=== PATIENT | female | born 1960 | race Caucasian/White ===

== ENCOUNTER → 2021-02-01 10:08 | Outpatient (CLI) | payer OTHER, SELFPAY ==
[2021-02-01 10:28] LABS: Hematocrit 44.1 % (36-46); Mean Corpuscular HGB Conc 34.1 % (30-36); Mean Corpuscular Hemoglobin 31.2 PG (26-34); Mean Corpuscular Volume 91.4 fL (80-100); Platelet Count 248 X10^3/uL (150-400); Red Blood Cell Count 4.83 X10^6/uL (4.0-5.2); Red Cell Distribution Width 13.5 % (11.6-14.8); White Blood Cell Count 5.9 X10^3/uL (4.5-11.0)
[2021-02-01 10:54] LABS: Alanine Aminotransferase 10 IU/L (<35); Albumin 4.4 g/dL (3.5-5.0); Albumin Globulin Ratio 1.8 (1.0-2.8); Alkaline Phosphatase 71 U/L (38-126); Aspartate Aminotransferase 18 IU/L (14-36); BUN Creatinine Ratio 19.7 (6-22); Bilirubin Total 0.8 mg/dL (0.2-1.3); Blood Urea Nitrogen 14 mg/dL (7-17); Calcium 9.2 mg/dL (8.4-10.2); Carbon Dioxide 28 mmol/L (22-32); Chloride 106 mmol/L (98-107); Cholesterol 218 mg/dL (140-199); Estimated Glomerular Filt Rate > 60.0 mL/min (>60); Globulin 2.4 g/dL (1.7-4.1); Glucose 94 mg/dL (80-110); HDL Cholesterol 64 mg/dL (40-60); HEMOLYSIS 17 (0-50); LDL Cholesterol Calculated 135 mg/dL (<100); Sodium 139 mmol/L (137-145); Total Protein 6.8 g/dL (6.3-8.2); Triglycerides 97 mg/dL (35-150)
[2021-02-01 11:24] LABS: TSH w/ Reflex to FT4 2.22 uIU/mL (0.47-4.68)
== END ==
PROVIDERS: Family Provider Obstetrics & Gynecology; PCP Registered Nurse Diabetes Educator; Referring Provider Registered Nurse Diabetes Educator; Visit Provider Registered Nurse Diabetes Educator
DX: Z00.00 Encounter for general adult medical examination without abnormal findings (principal)
CPT/HCPCS: 36415; 80053; 80061; 84443; 85027

== ENCOUNTER → 2022-09-30 12:42 | Outpatient (CLI) | payer OTHER, SELFPAY ==
--- NOTE | 2022-09-30 12:44 | DI.RAD.S_ITS ---
PROCEDURE: XR FINGER RT MIN 2V INDICATIONS: night sweats, remote hx osteomyelitis TECHNIQUE: AP hand, 2 views of the 3rd finger(s) acquired. COMPARISON: [facility], CR, XR FINGER(S) RIGHT, 02/09/2020, 13:34. FINDINGS: Bones: No fractures or dislocations. No suspicious bony lesions. Mild polyarticular joint space narrowing with periarticular osteophyte formation. No erosive changes. Soft tissues: No suspicious soft tissue calcifications. IMPRESSION: Mild scattered arthrosis. No acute radiographic abnormality. If there is high concern for further derangement, consider MRI evaluation. Dictated by: Jose Dong [facility] Interpreted: Mikey Dan MD on 09/30/2022 at 13:26 Approved by: Mikey Dan M.D. on 10/06/2022 at 19:26
--- NOTE | 2022-09-30 12:44 | DI.RAD.S_ITS ---
PROCEDURE: XR LUMBAR SPINE MIN 4V INDICATIONS: eval LLE radiculopathy TECHNIQUE: 5 views of the lumbar spine acquired, including flexion and extension views. COMPARISON: None. FINDINGS: Bones: 5 nonrib-bearing vertebrae are present. There is normal bony alignment. No vertebral body compression fractures. No suspicious bony lesions. Severe disc height loss at the L5-S1 level. Mild L4-L5 and L5-S1 facet joint arthropathy. Oblique views demonstrate no pars defects. Soft tissues: Overlying bowel gas pattern is normal. No suspicious soft tissue calcifications. Vascular calcifications indicate atherosclerosis. IMPRESSION: 1. Severe disc degeneration at the L5-S1 level and there is mild L4-L5 and L5-S1 facet joint arthropathy If there is high concern for further derangement, consider MRI evaluation. Dictated by: Jose Dong [facility] Interpreted: Mikey Dan MD on 09/30/2022 at 13:24 Transcribed by: DAVID on 09/30/2022 at 13:26 Approved by: Mikey Dan M.D. on 09/30/2022 at 16:22
--- NOTE | 2022-09-30 12:44 | DI.RAD.S_ITS ---
PROCEDURE: XR CHEST 2V INDICATIONS: night sweats TECHNIQUE: 2 views of the chest were acquired. COMPARISON: None. FINDINGS: Surgical changes and devices: None. Lungs and pleura: Lungs are clear. No pleural effusions or pneumothorax. Mediastinum: Mediastinal contours are normal. Heart size is normal. Bones and chest wall: No suspicious bony abnormalities. Soft tissues appear unremarkable. IMPRESSION: No acute cardiopulmonary disease. Dictated by: Jose Dong [facility] Interpreted: Mikey Dan MD on 09/30/2022 at 13:27 Transcribed by: DAVID on 09/30/2022 at 13:27 Approved by: Mikey Dan M.D. on 09/30/2022 at 16:22
== END ==
PROVIDERS: Family Provider Obstetrics & Gynecology; PCP Registered Nurse Diabetes Educator; Referring Provider Registered Nurse Diabetes Educator; Visit Provider Registered Nurse Diabetes Educator
DX: M47.27 Other spondylosis with radiculopathy, lumbosacral region (principal); M51.17 Intervertebral disc disorders with radiculopathy, lumbosacral region; M47.26 Other spondylosis with radiculopathy, lumbar region; R61 Generalized hyperhidrosis; M19.041 Primary osteoarthritis, right hand; M51.9 Unspecified thoracic, thoracolumbar and lumbosacral intervertebral disc disorder; M79.644 Pain in right finger(s); Z87.39 Personal history of other diseases of the musculoskeletal system and connective tissue
CPT/HCPCS: 36415; 71046; 72110; 73140; 80053; 84443; 85025; 85651; 86140; 86480; 87040; 87389

== ENCOUNTER → 2022-09-30 13:29 | Outpatient (CLI) | payer OTHER, SELFPAY ==
[2022-09-30 14:27] LABS: Add Manual Diff / Slide Review NO; Basophils Absolute Auto 100 /uL (0-100); Basophils Percent Auto 1.1 % (0-2); Eosinophils Absolute Auto 100 /uL (0-450); Eosinophils Percent Auto 1.1 % (2-4); Hematocrit 41.7 % (36-46); Hemoglobin 14.1 g/dL (12.0-16.0); Lymphocytes Absolute Auto 1900 /uL (1100-4500); Lymphocytes Percent Auto 31.3 % (25-40); Mean Corpuscular HGB Conc 33.8 % (30-36); Mean Corpuscular Hemoglobin 30.7 PG (26-34); Mean Corpuscular Volume 90.9 fL (80-100); Monocytes Absolute Auto 300 /uL (0-900); Monocytes Percent Auto 5.6 % (3-14); Neutrophils Absolute Auto 3800 /uL (1500-7000); Neutrophils Percent Auto 60.9 % (50-75); Platelet Count 254 X10^3/uL (150-400); Red Blood Cell Count 4.59 X10^6/uL (4.0-5.2); Red Cell Distribution Width 13.6 % (11.6-14.8); White Blood Cell Count 6.2 X10^3/uL (4.5-11.0)
[2022-09-30 14:54] LABS: Alanine Aminotransferase 16 IU/L (<35); Albumin 4.2 g/dL (3.5-5.0); Albumin Globulin Ratio 1.8 (1.0-2.8); Alkaline Phosphatase 85 U/L (38-126); Aspartate Aminotransferase 18 IU/L (14-36); BUN Creatinine Ratio 16.9 (6-22); Bilirubin Total 0.5 mg/dL (0.2-1.3); Blood Urea Nitrogen 12 mg/dL (7-17); C-Reactive Protein Quant < 0.5 mg/dL (<1.0); Calcium 8.9 mg/dL (8.4-10.2); Carbon Dioxide 26 mmol/L (22-32); Chloride 105 mmol/L (98-107); Estimated Glomerular Filt Rate > 60 mL/min (>60); Globulin 2.4 g/dL (1.7-4.1); Glucose 92 mg/dL (80-110); HEMOLYSIS < 15 (0-50); Sodium 139 mmol/L (137-145); Total Protein 6.6 g/dL (6.3-8.2)
[2022-09-30 15:15] LABS: TSH w/ Reflex to FT4 1.75 uIU/mL (0.47-4.68)
[2022-09-30 16:13] LABS: Erythrocyte Sedimentation Rate 2 MM/HR (0-20)
[2022-10-02 17:24] LABS: HIV 1 & 2 Ab/Ag 4th Gen Combo NEGATIVE (NEGATIVE)
[2022-10-02 17:50] LABS: QuantiFERON Mitogen Value >10.00 IU/mL (.); QuantiFERON Nil Value 0.08 IU/mL (.); QuantiFERON TB Gold Plus Negative (Negative); QuantiFERON TB1 Ag Value 0.08 IU/mL (.); QuantiFERON TB2 Ag Value 0.06 IU/mL (.)
== END ==
PROVIDERS: Family Provider Obstetrics & Gynecology; PCP Registered Nurse Diabetes Educator; Referring Provider Registered Nurse Diabetes Educator; Visit Provider Registered Nurse Diabetes Educator
DX: R61 Generalized hyperhidrosis (principal)
CPT/HCPCS: 36415; 80053; 84443; 85025; 85651; 86140; 86480; 87040; 87389

== ENCOUNTER → 2023-02-05 13:17 | Outpatient (CLI) | payer OTHER, SELFPAY ==
--- NOTE | 2023-02-05 13:19 | DI.MG.S_ITS ---
BILATERAL DIGITAL SCREENING MAMMOGRAM 3D/2D WITH CAD: 02/05/2023 CLINICAL: Routine screening. Comparison mammograms 05/07/2016, 04/06/2015. Both breasts are heterogeneously dense, which may obscure small masses (category c / 51-75% glandular tissue). Current study was also evaluated with a Computer Aided Detection (CAD) system. There is an irregular asymmetry in the left breast anterior depth superior region seen on the mediolateral oblique view only. No other significant masses, calcifications, or other findings are seen in either breast. IMPRESSION: INCOMPLETE: NEEDS ADDITIONAL IMAGING EVALUATION The irregular asymmetry in the left breast is indeterminate. Additional views with possible ultrasound are recommended. Based on the Tyrer Cuzick model (a risk assessment model) the patient's lifetime risk is 8.1% and her 10 year risk is 3.5%. According to the ACR, ACS, and NCCN guidelines, an annual breast MRI exam along with mammogram is recommended if the patient's lifetime risk is 20% or greater. This exam was interpreted at Station ID: [id number]. NOTE: For mammograms, a report in lay terms will be sent to the patient. Approximately 15% of breast malignancies will not be visualized mammographically. In the management of a palpable breast mass, a negative mammogram must not discourage biopsy of a clinically suspicious lesion. Electronically Signed By: Jason Simms M.D. [facility] [place]/:02/05/2023 14:42:31 letter sent: Additional Imaging Needed ACR BI-RADS Category 0: Incomplete 3340F
== END ==
PROVIDERS: Family Provider Obstetrics & Gynecology; PCP Registered Nurse Diabetes Educator; Referring Provider Registered Nurse Diabetes Educator; Visit Provider Registered Nurse Diabetes Educator
DX: Z12.31 Encounter for screening mammogram for malignant neoplasm of breast (principal)
CPT/HCPCS: 77063; 77067

== ENCOUNTER → 2023-05-06 10:15 | Outpatient (CLI) | payer OTHER, SELFPAY ==
--- NOTE | 2023-05-06 10:16 | DI.US.S_ITS ---
LIMITED ULTRASOUND OF LEFT BREAST: 05/06/2023 CLINICAL: Patient returns today to evaluate focal asymmetries in the left breast. Comparison is made to exams dated: 05/06/2023 mammogram and 02/05/2023 mammogram - [facility]. Color flow and real-time ultrasound of the left breast were performed. Singh scale images of the real-time examination were reviewed. There is a 0.3 cm x 0.2 cm x 0.4 cm possible complicated cyst in the left breast at 10 o'clock anterior depth 3 cm from the nipple. There also is a 0.3 cm x 0.5 cm x 0.4 cm possible complicated cyst in the left breast at 1 o'clock posterior depth 1 cm from the nipple. IMPRESSION: PROBABLY BENIGN The 0.3 cm x 0.2 cm x 0.4 cm possible complicated cyst in the left breast at 10 o'clock anterior depth is probably benign. A follow-up ultrasound in 6 months is recommended. The 0.3 cm x 0.5 cm x 0.4 cm possible complicated cyst in the left breast at 1 o'clock posterior depth is probably benign. A follow-up ultrasound in 6 months is recommended. A follow-up ultrasound in 6 months is recommended to demonstrate stability. This exam was interpreted at Station ID: [id number]. Electronically Signed By: Mikey bardales/:05/06/2023 12:09:41 letter sent: Followup Recommended Ultrasound BI-RADS: 3 Probably benign
--- NOTE | 2023-05-06 10:16 | DI.MG.S_ITS ---
UNILATERAL LEFT DIGITAL DIAGNOSTIC MAMMOGRAM 3D/2D WITH ADDITIONAL VIEWS: 05/06/2023 CLINICAL: Additional evaluation requested from prior study. Comparison is made to exam dated: 02/05/2023 mammogram - [facility]. The left breast is heterogeneously dense, which may obscure small masses (category c / 51-75% glandular tissue). There is an asymmetry in the left breast anterior depth superior region seen on the mediolateral oblique view only. This is not seen in additional views. However, there are two tiny <5mm oval circumscribed masses better seen on tomographic views in this same region. No other significant masses or calcifications are seen in the breast. IMPRESSION: INCOMPLETE: NEEDS ADDITIONAL IMAGING EVALUATION The asymmetry in the left breast is less prominent, likely superimposition. However, there are two tiny <5mm oval circumscribed masses better seen on tomographic views in this same region. An ultrasound is recommended to further evaluate Based on the Tyrer Cuzick model (a risk assessment model) the patient's lifetime risk is 8.1% and her 10 year risk is 3.5%. According to the ACR, ACS, and NCCN guidelines, an annual breast MRI exam along with mammogram is recommended if the patient's lifetime risk is 20% or greater. This exam was interpreted at Station ID: [id number]. NOTE: For mammograms, a report in lay terms will be sent to the patient. Approximately 15% of breast malignancies will not be visualized mammographically. In the management of a palpable breast mass, a negative mammogram must not discourage biopsy of a clinically suspicious lesion. Electronically Signed By: Mikey Dan M.D. [facility]/:05/06/2023 12:05:24 ACR BI-RADS Category 0: Incomplete 3340F
== END ==
PROVIDERS: Family Provider Obstetrics & Gynecology; PCP Registered Nurse Diabetes Educator; Referring Provider Registered Nurse Diabetes Educator; Visit Provider Registered Nurse Diabetes Educator
DX: R92.8 Other abnormal and inconclusive findings on diagnostic imaging of breast (principal)
CPT/HCPCS: 76642; 77065; G0279

== ENCOUNTER → 2023-07-21 10:51 | Outpatient (CLI) | payer OTHER, SELFPAY ==
--- NOTE | 2023-07-21 10:52 | DI.RAD.S_ITS ---
PROCEDURE: XR HIP W PEL IF DONE RT 2V INDICATIONS: eval R hip and pelvic pain TECHNIQUE: 2 views of the hip were acquired. COMPARISON: None. FINDINGS: Bones: No fractures or dislocations. No suspicious bony lesions. The visualized pelvic ring appears intact. Soft tissues: No suspicious soft tissue calcifications or masses. IMPRESSION: Unremarkable pelvis and right hip radiographs Approved by: Austen Garcia M.D. on 07/21/2023 at 16:10
== END ==
PROVIDERS: Family Provider Obstetrics & Gynecology; PCP Registered Nurse Diabetes Educator; Referring Provider Registered Nurse Diabetes Educator; Visit Provider Registered Nurse Diabetes Educator
DX: M25.551 Pain in right hip (principal); R10.2 Pelvic and perineal pain
CPT/HCPCS: 73502

== ENCOUNTER → 2023-07-27 15:06 | Outpatient (CLI) | payer OTHER, SELFPAY ==
--- NOTE | 2023-07-27 15:06 | DI.US.S_ITS ---
PROCEDURE: US PELVIC COMPLETE INDICATIONS: RIGHT PELVIC PAIN. HISTORY OF FIBROIDS. PER PROVIDER POSTMENOPAUSAL. TECHNIQUE: Real-time scanning was performed of the pelvic organs, with image documentation. Additional endovaginal scanning was necessary due to incomplete visualization of the adnexal and endometrial structures by transabdominal scanning. COMPARISON: [facility], US, PELVIC COMPLETE, 12/01/2012, 16:19. FINDINGS: Uterus: Uterus is anteverted and normal in size at 5.2 x 4.9 x 2.7 cm. The myometrium is homogeneous. The endometrium measures 5 mm combined thickness. Anterior midline submucosal fibroid 0.8 x 0.5 x 0.6 cm posterior uterine body submucosal fibroid 0.9 x 1.0 x 0.8 cm Ovaries: The right ovary measures 2.2 x 1.9 x 1.0 cm, with a calculated ovarian volume of 2 cc. The left ovary measures 3.8 x 1.6 x 1.1 cm, with a calculated ovarian volume of 4 cc.Less than 12 follicles can be seen in each ovary. No adnexal masses are seen. Other: No pathologic free abdominal or pelvic fluid. IMPRESSION: 1. Small uterine fibroids as above. 2. No adnexal mass identified. We strive to produce accurate, complete, and clear reports of imaging services. To assist us in improving patient care, this report was composed using standard report templates and voice recognition software. Therefore, it may contain abnormal punctuation, insertions and/or omissions. Occasional wrong-word or sound-alike substitutions may occur. Though we review the report and make efforts to correct it, we do recommend that the report be read carefully in proper context to recognize any text inaccuracies. Dictated by: Remberto Leblanc M.D. on 07/27/2023 at 18:20 Approved by: Remberto Leblanc M.D. on 07/27/2023 at 18:23
== END ==
PROVIDERS: Family Provider Obstetrics & Gynecology; PCP Registered Nurse Diabetes Educator; Referring Provider Registered Nurse Diabetes Educator; Visit Provider Registered Nurse Diabetes Educator
DX: D25.0 Submucous leiomyoma of uterus (principal); M25.551 Pain in right hip; R10.2 Pelvic and perineal pain
CPT/HCPCS: 76830; 76856

== ENCOUNTER → 2023-09-02 12:50 | Outpatient (CLI) | payer OTHER, SELFPAY ==
[2023-09-02 13:39] LABS: Estimated Glomerular Filt Rate > 60 mL/min (>60)
== END ==
PROVIDERS: Family Provider Obstetrics & Gynecology; PCP Registered Nurse Diabetes Educator; Referring Provider Registered Nurse Diabetes Educator; Visit Provider Registered Nurse Diabetes Educator
DX: Z13.9 Encounter for screening, unspecified (principal)
CPT/HCPCS: 36415; 82565

== ENCOUNTER → 2023-09-03 10:32 | Outpatient (CLI) | payer OTHER, SELFPAY ==
--- NOTE | 2023-09-03 10:34 | DI.CT.S_ITS ---
PROCEDURE: CT ABDOMEN PELVIS W CON INDICATIONS: Eval RLQ right pelvic pain TECHNIQUE: After the administration of IV contrast, axial sections were acquired from the lung bases to the pubic symphysis. Coronal and sagittal reformats were performed. For radiation dose reduction, the following was used: automated exposure control, adjustment of mA and/or kV according to patient size. COMPARISON: None. FINDINGS: Image quality: Excellent. Lung bases: Unremarkable. Heart: No significant findings. ABDOMEN: Liver: Hemangioma in the right lobe of the liver measuring 2 cm. Additional hypodense foci in the left lobe of the liver. Possibly additional hemangiomas or cysts. Gallbladder: Gallstones. Biliary ducts: Unremarkable. Pancreas: Unremarkable. Spleen: Unremarkable. Adrenal Glands: Unremarkable. Kidneys and Ureters: No hydronephrosis. Benign right renal cyst. No kidney stones seen. Stomach and Bowel: Stomach, small bowel loops, and colon are unremarkable. Diverticulosis. No diverticulitis. The appendix is absent. Peritoneum: No abnormal intraperitoneal fluid. No free air. Ventral Wall: No hernia. Abdominal Nodes: No retroperitoneal or mesenteric adenopathy by size criteria. Vessels: Aorta and inferior vena cava are normal in size. PELVIS: Pelvic Organs: Anteverted uterus. Bladder: No stone. Pelvic Nodes: No enlarged lymph nodes. Miscellaneous: No inguinal hernias are seen. Bones: No suspicious lesion. T11 intraosseous hemangioma. L5-S1 DDD. IMPRESSION: No acute inflammatory process is identified. No free fluid. No hydronephrosis. Dictated by: Jason Simms M.D. on 09/03/2023 at 16:11 Approved by: Jason Simms M.D. on 09/03/2023 at 16:20
== END ==
PROVIDERS: Family Provider Obstetrics & Gynecology; PCP Registered Nurse Diabetes Educator; Referring Provider Registered Nurse Diabetes Educator; Visit Provider Registered Nurse Diabetes Educator
DX: R10.2 Pelvic and perineal pain (principal); R10.31 Right lower quadrant pain
CPT/HCPCS: 74177; Q9967

== ENCOUNTER → 2023-11-27 12:11 | Outpatient (CLI) | payer OTHER, SELFPAY ==
--- NOTE | 2023-11-27 12:12 | DI.US.S_ITS ---
ULTRASOUND OF LEFT BREAST: 11/27/2023 CLINICAL: Patient returns today to evaluate an asymmetry in the left breast. Comparison is made to exams dated: 05/06/2023 ultrasound, 05/06/2023 mammogram, and 02/05/2023 mammogram - [facility]. Color flow and real-time ultrasound of the left breast were performed. Singh scale images of the real-time examination were reviewed. There is a stable 0.3 cm x 0.2 cm x 0.3 cm complicated cyst in the left breast at 10 o'clock anterior depth 3 cm from the nipple. There also is a stable 0.4 cm x 0.4 cm x 0.3 cm complicated cyst in the left breast at 1 o'clock posterior depth 1 cm from the nipple. IMPRESSION: PROBABLY BENIGN The stable 0.3 cm x 0.2 cm x 0.3 cm complicated cyst in the left breast at 10 o'clock anterior depth is probably benign. A follow-up ultrasound in 6 months is recommended. The stable 0.4 cm x 0.4 cm x 0.3 cm complicated cyst in the left breast at 1 o'clock posterior depth is probably benign. A follow-up ultrasound in 6 months is recommended. This exam was interpreted at Station ID: [id number]. Electronically Signed By: Mikey bardales/:11/27/2023 13:09:03 letter sent: Followup Recommended Ultrasound BI-RADS: 3 Probably benign
== END ==
LOC: US 12:12
PROVIDERS: Family Provider Obstetrics & Gynecology; PCP Registered Nurse Diabetes Educator; Referring Provider Registered Nurse Diabetes Educator; Visit Provider Registered Nurse Diabetes Educator
DX: R92.8 Other abnormal and inconclusive findings on diagnostic imaging of breast (principal); N60.02 Solitary cyst of left breast
CPT/HCPCS: 76642

== ENCOUNTER → 2025-01-20 14:20 | Outpatient (CLI) | payer OTHER, SELFPAY ==
[2025-01-20 15:15] LABS: Add Manual Diff / Slide Review NO; Basophils Absolute Auto 100 /uL (0-100); Basophils Percent Auto 0.8 % (0-2); Eosinophils Absolute Auto 400 /uL (0-450); Eosinophils Percent Auto 5.1 % (2-4); Hematocrit 42.8 % (36-46); Hemoglobin 14.5 g/dL (12.0-16.0); Lymphocytes Absolute Auto 2000 /uL (1100-4500); Lymphocytes Percent Auto 26.8 % (25-40); Mean Corpuscular Volume 91.2 fL (80-100); Monocytes Absolute Auto 500 /uL (0-900); Monocytes Percent Auto 7.2 % (3-14); Neutrophils Absolute Auto 4500 /uL (1500-7000); Neutrophils Percent Auto 60.1 % (50-75); Platelet Count 261 X10^3/uL (150-400); Red Blood Cell Count 4.69 X10^6/uL (4.0-5.2); Red Cell Distribution Width 13.6 % (11.6-14.8); White Blood Cell Count 7.5 X10^3/uL (4.5-11.0)
[2025-01-20 15:35] LABS: Alanine Aminotransferase 14 IU/L (<35); Albumin 4.6 g/dL (3.5-5.0); Alkaline Phosphatase 91 U/L (38-126); Aspartate Aminotransferase 19 IU/L (14-36); BUN Creatinine Ratio 16.9 (6-22); Bilirubin Total 0.7 mg/dL (0.2-1.3); Blood Urea Nitrogen 12 mg/dL (7-17); Calcium 9.4 mg/dL (8.4-10.2); Carbon Dioxide 24 mmol/L (22-32); Chloride 104 mmol/L (98-107); Cholesterol 256 mg/dL (140-199); Estimated Glomerular Filt Rate > 60 mL/min (>60); Globulin 2.3 g/dL (1.7-4.1); Glucose 98 mg/dL (80-110); HDL Cholesterol 64 mg/dL (40-60); HEMOLYSIS < 15 (0-50); LDL Cholesterol Calculated 171 mg/dL (<100); Potassium 4.4 mmol/L (3.4-5.1); Sodium 136 mmol/L (137-145); Total Protein 6.9 g/dL (6.3-8.2); Triglycerides 107 mg/dL (35-150)
[2025-01-23 15:50] LABS: Hep C Virus Ab w/Reflex Quant NEGATIVE s/c (NEGATIVE)
== END ==
PROVIDERS: Family Provider Obstetrics & Gynecology; PCP Family Medicine; Referring Provider Family Medicine; Visit Provider Family Medicine
DX: Z00.00 Encounter for general adult medical examination without abnormal findings (principal); F17.200 Nicotine dependence, unspecified, uncomplicated; G43.909 Migraine, unspecified, not intractable, without status migrainosus; Z12.2 Encounter for screening for malignant neoplasm of respiratory organs
CPT/HCPCS: 36415; 80053; 80061; 85025; 86803